=== PATIENT | female | born 1985 | race Caucasian/White ===

== ENCOUNTER 2022-08-25 10:15 | Outpatient (CLI) | payer BC, SELFPAY ==
[2022-08-25 19:52] LABS: Basophils Percent Auto 0.5 % (0.2-1.2); Eosinophils Absolute Auto 0.1 K/mm3 (0-0.3); Eosinophils Percent Auto 1.1 % (0-4.4); Hematocrit 43.8 % (37.0-47.0); Hemoglobin 14.6 g/dL (12.0-15.0); Immature Granulocyte Absolute 0.02 K/mm3 (0.00-0.031); Immature Granulocyte Percent A 0.3 % (0-0.5); Lymphocytes Absolute Auto 1.71 K/mm3 (0.9-3.2); Lymphocytes Percent Auto 26.4 % (18.3-44.2); Mean Corpuscular HGB Conc 33.3 g/dl (32-36); Mean Corpuscular Hemoglobin 30.5 pg (26-34); Mean Corpuscular Volume 91.4 fl (80-100); Mean Platelet Volume 10.8 fl (7.4-10.4); Monocytes Absolute Auto 0.5 K/mm3 (0.1-0.6); Neutrophils Absolute Auto 4.1 K/mm3 (1.3-6.7); Neutrophils Percent Auto 63.7 % (45.5-73.1); Platelet Count Result 314 k/mm3 (150-375); Red Blood Count 4.79 M/mm3 (4.2-5.4); Red Cell Distribution Width 11.9 % (11.5-14.5); White Blood Count 6.5 K/mm3 (4.5-10.0)
[2022-08-25 21:07] LABS: Alanine Aminotransferase 28 U/L (6-35); Albumin Level 5.1 g/dL (3.5-5.1); Alkaline Phosphatase 54 U/L (38-126); Anion Gap 9 mmol/L (8-16); Aspartate Amino Transferase 39 U/L (14-36); Bilirubin,Total 1.5 mg/dL (0.2-1.3); Blood Urea Nitrogen 11 mg/dL (7-17); Calcium 9.1 mg/dL (8.4-10.2); Carbon Dioxide 29 mmol/L (22-30); Chloride 99 mmol/L (98-107); Estimated Glomerular Filt Rate > 60; Glucose 79 mg/dL (65-110); Potassium 4.3 mmol/L (3.4-5.0); Sodium 137 mmol/L (137-145)
== END 2022-08-25 10:16 | disposition home or self-care (01) ==
LOC: ANHGOSHLAB 10:17
PROVIDERS: PCP Family Medicine; Visit Provider Family Medicine
DX: R53.83 Other fatigue (principal); Z13.29 Encounter for screening for other suspected endocrine disorder; Z13.228 Encounter for screening for other metabolic disorders
CPT/HCPCS: 36415; 80053; 84443; 85025

== ENCOUNTER 2022-12-13 19:37 | Emergency (ER) | payer BC, SELFPAY ==
--- NOTE | ~2022-12-13 | XR_ITS ---
EXAM: XR foot RT min 3V DATE: 12/13/2022 19:58 HISTORY: stepped on nail, R.FOOT . COMPARISON: None available. FINDINGS: Normal mineralization. No fracture or dislocation. No lytic or blastic lesion. Joint space s are maintained. No erosion or periosteal change. Soft tissues within normal limits. IMPRESSION: No acute osseous finding in the right foot. No radiopaque foreign body. Reviewed, dictated and finalized at location K. IMPRESSION: No acute osseous finding in the right foot. No radiopaque foreign b radha.
[2022-12-13 19:45] VITALS: BP 115/75; PULSE 84; RESP 16; TEMP 36.9; O2SAT 100
--- NOTE | 2022-12-13 21:28 | ED.GENADULT ---
HPI - General Adult General Chief complaint: Extremity Injury, Lower <ABIGAIL Lopez Last Filed: 12/14/22 03:17> Stated complaint: stepped on a nail <ABIGAIL Lopez Last Filed: 12/14/22 03:17> Time Seen by Provider: 12/13/22 21:10 <Marco Miller PA-C - Last Filed: 12/14/22 03:17> Source: patient <ABIGAIL Lopez Last Filed: 12/14/22 03:17> Mode of arrival: ambulatory <ABIGAIL Lopez Last Filed: 12/14/22 03:17> Limitations: no limitations <ABIGAIL Lopez Last Filed: 12/14/22 03:17> History of Present Illness HPI narrative: This is a 36-year-old female presents the ED with chief complaint of a right foot injury just prior to arrival. Patient states she was working outside on her deck and stepped on a board that had a nail in it. She is reports the nail went through the sole of her right shoe and into the foot. She states the nail was not embedded in the foot. Reports some pain in the area. Denies any further site of pain or injury. Tetanus status unknown. <Marco Miller PA-C - Last Filed: 12/14/22 03:17> Related Data Allergies/adverse reactions: Allergies Allergy/AdvReac Type Severity Reaction Status Date / Time Penicillins Allergy Mild Rash Verified 12/13/22 21:11 <Marco Miller PA-C - Last Filed: 12/14/22 03:17> Review of Systems Review of Systems: CONSTITUTIONAL: Denies fever, chills, or sweats. SKIN: See HPI MUSCULOSKELETAL: See HPI NEUROLOGIC: Denies headache, numbness, dizziness, or weakness. PSYCHIATRIC: Denies anxiety or depression. <ABIGAIL Lopez Last Filed: 12/14/22 03:17> PMFSH Past Medical History Medical History: Medical History Asthma <ABIGAIL Lopez Last Filed: 12/14/22 03:17> Surgical History Surgical History: Surgical History Hx of cholecystectomy (~2009) <ABIGAIL Lopez Last Filed: 12/14/22 03:17> Family History Family History: Family History Father Hypertension Mother Thyroid cancer Grandparent Diabetes mellitus Hypertension Heart problem Grandparent Hypertension Heart problem <Marco Miller PA-C - Last Filed: 12/14/22 03:17> Social History Social History: Social History Smoking status: Never smoker Alcohol intake: never Substance use: never Substance use type: does not use Lack of Transportation: No Lack of Food: Never True Current Housing: I Have Housing Concerned About Future Housing: No Difficulty Paying Gas/Electric Bills: No Difficulty Paying for Meds: No Currently Unemployed: No Education: Decline to Answer Difficulty w/ Childcare or Family Care: No Living arrangements: with family Additional living arrangements comments: Spouse and Children Occupation/Education: occupation 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 EXTREMITIES: Normal range of motion. No edema. SKIN: Small puncture wound noted to the sole of the right foot. Warm, dry, no rash. NEURO: Alert and oriented x3. No focal deficits. PSYCH: Normal mood and affect. <Marco Miller PA-C - Last Filed: 12/14/22 03:17> Course PROPERTY MANAGEMENT ASSISTANT/PA Physician Supervision This is a was performed by both a physician and an APC. I performed all aspects of the MDM as documented w/ the following additions: 36-year-old presented after stepping on a nail went through he
[2022-12-13] MEDS: CIPROFLOXACIN 500 MG TAB PO (21:47)
[2022-12-13] MEDS: TETANUS,DIPHTHERIA,AC PERTUSSIS ADULT (0.5 ML) BOOSTRIX IM (21:47)
== END 2022-12-13 22:06 | disposition home or self-care (01) ==
LOC: ANHED 21:59
PROVIDERS: Emergency Provider Physician Assistant; PCP Family Medicine
DX: S91.331A Puncture wound without foreign body, right foot, initial encounter (principal); Z23 Encounter for immunization; J45.909 Unspecified asthma, uncomplicated; W45.0XXA Nail entering through skin, initial encounter
CPT/HCPCS: 73630; 90471; 90715; 99283; A9270

== ENCOUNTER 2023-05-25 19:13 | Emergency (ER) | payer BC, SELFPAY ==
--- NOTE | ~2023-05-25 | CT_ITS ---
EXAMINATION: CT cervical spine wo con DATE: 05/25/2023 21:59 INDICATION: Neck pain TECHNIQUE: Computed tomography (CT) of the cervical spine was performed without intravenous contrast. The dose-length product was 127 mGy-cm. Automated exposure control and iterative reconstruction technique were employed. COMPARISON: None FINDINGS: Straightening of cervical lordosis. Vertebral body heights are maintained. No fracture, sub luxation or dislocation. No evidence for perched facet. Skull base is unremarkable. Lung apices are u nremarkable. No paraspinal soft tissue abnormality. Craniovertebral junction is normal. IMPRESSION: 1. No acute abnormality of the cervical spine. Reviewed, dictated and finalized at location A.
[2023-05-25 19:46] VITALS: BP 127/73; PULSE 80; RESP 16; TEMP 36.7; O2SAT 100
[2023-05-25] MEDS: ACETAMINOPHEN 500 MG TABLET 1000 MG PO (21:51)
[2023-05-25] MEDS: IBUPROFEN 400 MG TABLET 800 MG PO (21:51)
[2023-05-25] MEDS: CYCLOBENZAPRINE HCL 10 MG TABLET PO (22:40)
--- NOTE | 2023-05-26 13:46 | ED.GENADULT ---
HPI - General Adult General Chief complaint: Neck Pain/Injury Stated complaint: neck pain Time Seen by Provider: 05/25/23 21:09 Source: patient Mode of arrival: ambulatory Limitations: no limitations History of Present Illness HPI narrative: 37 year old female presents today with complaints of right neck pain that has been going on for over a week. She went to Urgent care today who directed her to the ER due to them only being able to do xr. Paitent with left neck pain that started about 1 week ago when she awoke. She assumed that she slept on it wrong has tried some tylenol and ibuprofen 1 pill maybe twice a day and a topical once without relief. does get some tingling to the 3,4,5 digits of the hand but is intermittent. Denies urinary incontinence, bowel incontinence, leg or arm weakness, saddle pareasthesia. Related Data Allergies Allergy/AdvReac Type Severity Reaction Status Date / Time Penicillins Allergy Mild Rash Verified 05/25/23 20:33 Review of Systems Review of Systems: All systems reviewed & are unremarkable except as noted in HPI and below PMFSH Past Medical History Medical History Asthma Surgical History Surgical History Hx of cholecystectomy (~2009) Family History Family History Father Hypertension Mother Thyroid cancer Grandparent Diabetes mellitus Hypertension Heart problem Grandparent Hypertension Heart problem Social History Social History Smoking status: Never smoker Alcohol intake: never Substance use: never Substance use type: does not use Lack of Transportation: No Lack of Food: Never True Current Housing: I Have Housing Concerned About Future Housing: No Difficulty Paying Gas/Electric Bills: No Difficulty Paying for Meds: No Currently Unemployed: No Education: Decline to Answer Difficulty w/ Childcare or Family Care: No Living arrangements: with family Additional living arrangements comments: Spouse and Children Occupation/Education: occupation 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 Gender identity (if verbalized by the patient): Female Sexual Orientation (if Verbalized by the Patient): Straight or Heterosexual Spiritual care concerns: No Agree to blood products: Yes Exam Const: General: cooperative, healthy appearing, comfortable, no acute distress and well developed Orientation/consciousness: patient oriented x3 HENMT: Head: normal to inspection Eyes: General: appearance normal, both eyes and all related structures Resp: Effort & Inspection: normal respiratory effort and able to speak in complete sentences Auscultation: clear to auscultation bilaterally Cardio: Rate: regular rate Rhythm: regular rhythm Heart sounds: S1 normal heart sound present and S2 normal heart sound present Back/Spine/Pelvis: Cervical Spine: normal cervical lordosis, cervical ROM normal, No cervical muscular tenderness, No pain with cervical ROM and No Cervical spine tenderness Other: Spasm noted to left trapezius muscle Neuro: General: patient oriented x3 Cranial nerves: Yes CN's II-XII intact bilaterally Speech: normal speech Gait exam (Neuro): Normal gait present Motor exam (neuro): 5/5 motor strength present throughout Course Vital Signs Vital signs: Vital Signs Temperature 98.1 F 05/25/23 19:46 Pulse Rate 80 05/25/23 19:46 Respiratory Rate 16 05/25/23 19:46 Blood Pressure 127/73 05/25/23 19:46 Pulse Oximetry 100 05/25/23 19:46 Temperature 98.1 F 05/25/23 19:46 Pulse Rate 80 05/25/23 19:46 Respiratory Rate 16 05/25/23 19:46 Blood Pressure 127/73 05/25/23 19:46 Pulse Oximetry 100 05/25/23 19:46 Medical Decision Making ELENO Murdock
== END 2023-05-25 22:49 | disposition home or self-care (01) ==
PROVIDERS: Emergency Provider Nurse Practitioner Family; PCP Family Medicine
DX: S16.1XXA Strain of muscle, fascia and tendon at neck level, initial encounter (principal); M62.838 Other muscle spasm; J45.909 Unspecified asthma, uncomplicated; Z90.49 Acquired absence of other specified parts of digestive tract; X58.XXXA Exposure to other specified factors, initial encounter
CPT/HCPCS: 72125; 99284; A9270

== ENCOUNTER 2023-06-27 13:44 | Outpatient (CLI) | payer BC, SELFPAY ==
--- NOTE | ~2023-06-27 | XR_ITS ---
XR shoulder LT min 2V DATE: 06/27/2023 14:11 INDICATION: Posterior left shoulder pain TECHNIQUE: 4 views COMPARISON: None FINDINGS: No fracture, dislocation, periosteal reaction or bone destruction. There is normal alignmen t and preservation of joint spaces at the acromioclavicular and glenohumeral joints. No abnormal soft tissue calcification of left shoulder area. IMPRESSION: Negative Reviewed, dictated and finalized at location L. AINABILITY COACH IMPRESSION: Negative
== END 2023-06-27 13:45 | disposition home or self-care (01) ==
PROVIDERS: PCP Family Medicine; Visit Provider Emergency Medicine
DX: M25.512 Pain in left shoulder (principal)
CPT/HCPCS: 73030

== ENCOUNTER 2023-12-06 09:46 | Outpatient (CLI) | payer BC, SELFPAY ==
[2023-12-06 19:52] LABS: Basophils Percent Auto 0.6 % (0.2-1.2); Eosinophils Percent Auto 0.8 % (0-4.4); Hematocrit 43.5 % (37.0-47.0); Hemoglobin 14.6 g/dL (12.0-15.0); Immature Granulocyte Absolute 0.01 K/mm3 (0.00-0.031); Immature Granulocyte Percent A 0.2 % (0-0.5); Lymphocytes Absolute Auto 1.53 K/mm3 (0.9-3.2); Lymphocytes Percent Auto 29.9 % (18.3-44.2); Mean Corpuscular HGB Conc 33.6 g/dl (32-36); Mean Corpuscular Hemoglobin 31.1 pg (26-34); Mean Corpuscular Volume 92.6 fl (80-100); Mean Platelet Volume 10.8 fl (7.4-10.4); Monocytes Absolute Auto 0.4 K/mm3 (0.1-0.6); Neutrophils Absolute Auto 3.2 K/mm3 (1.3-6.7); Neutrophils Percent Auto 61.5 % (45.5-73.1); Platelet Count Result 316 k/mm3 (150-375); White Blood Count 5.1 K/mm3 (4.5-10.0)
[2023-12-06 20:29] LABS: Erythrocyte Sedimentation Rate 7 mm/hr (0-20)
[2023-12-06 20:32] LABS: Alanine Aminotransferase 25 U/L (6-35); Albumin Level 5.1 g/dL (3.5-5.1); Alkaline Phosphatase 53 U/L (38-126); Anion Gap 9 mmol/L (4-12); Aspartate Amino Transferase 49 U/L (14-36); Bilirubin,Total 1.2 mg/dL (0.2-1.3); Blood Urea Nitrogen 19 mg/dL (7-17); Calcium 10.2 mg/dL (8.4-10.2); Carbon Dioxide 27 mmol/L (22-30); Chloride 104 mmol/L (98-107); Estimated Glomerular Filt Rate > 60; Glucose 99 mg/dL (65-110); Potassium 4.9 mmol/L (3.4-5.0); Sodium 140 mmol/L (137-145)
[2023-12-06 20:39] LABS: Vitamin D 25 Hydroxy 27.2 ng/mL
[2023-12-06 21:35] LABS: Folic Acid 14.8 ng/mL (2.76->20)
== END 2023-12-06 09:47 | disposition home or self-care (01) ==
LOC: ANHGOSHLAB 09:47
PROVIDERS: PCP Family Medicine; Visit Provider Family Medicine
DX: R53.83 Other fatigue (principal); Z13.29 Encounter for screening for other suspected endocrine disorder; R63.4 Abnormal weight loss; Z13.228 Encounter for screening for other metabolic disorders; E55.9 Vitamin D deficiency, unspecified
CPT/HCPCS: 36415; 80053; 82306; 82607; 82746; 84443; 85025; 85652

== ENCOUNTER 2024-01-09 13:36 | Outpatient (CLI) | payer BC, SELFPAY ==
[2024-01-09 17:24] LABS: Alanine Aminotransferase 18 U/L (6-35); Albumin Level 4.9 g/dL (3.5-5.1); Alkaline Phosphatase 54 U/L (38-126); Aspartate Amino Transferase 29 U/L (14-36); Bilirubin,Total 1.5 mg/dL (0.2-1.3); CRP < 0.5 mg/dL (<1.0)
[2024-01-12 17:13] LABS: Immunoglobulin A 161 mg/dL (47-310); TTG IGA AB <1.0 U/mL
== END 2024-01-09 13:37 | disposition home or self-care (01) ==
PROVIDERS: PCP Family Medicine; Visit Provider Nurse Practitioner Family
DX: R74.01 Elevation of levels of liver transaminase levels (principal); R63.6 Underweight; K52.9 Noninfective gastroenteritis and colitis, unspecified
CPT/HCPCS: 36415; 80076; 82784; 86140; 86364

== ENCOUNTER 2024-01-24 10:31 | Outpatient (CLI) | payer BC, SELFPAY ==
[2024-02-01 17:03] LABS: Pancreatic Elastase, Stool >500 mcg/g
[2024-02-01 18:24] LABS: Calprotectin, Stool 5 mcg/g
== END 2024-01-24 10:32 | disposition home or self-care (01) ==
PROVIDERS: PCP Family Medicine; Visit Provider Nurse Practitioner Family
DX: K52.9 Noninfective gastroenteritis and colitis, unspecified (principal); R63.6 Underweight
CPT/HCPCS: 82653; 83993

== ENCOUNTER 2024-04-12 00:33 | Day surgery (SDC) | payer BC, SELFPAY ==
[2024-03-25 15:00] VITALS: BMI 18.3
--- NOTE | 2024-04-12 12:23 | WPDANESEPPF ---
Anes - Initial Pre Proc Eval Procedure: Operation Date: 04/12/24 13:30 Proposed Procedures p Colonoscopy - Jerad Ayala MD Date/Time: 04/12/24 12:23 Surgeon: Jerad Ayala MD Pre Op Diagnosis: Gastroenteritis/colitis unspecified Patient Data Age: 38 Gender: F Height: 1.57 m Weight: 45.4 kg Allergies Allergy/AdvReac Type Severity Reaction Status Date / Time Penicillins Allergy Mild Rash Verified 03/25/24 14:59 Home Medications Medication Instructions Recorded Confirmed Type albuterol sulfate 90 mcg/actuation 1 inh inhalation Q4-6H PRN 08/25/22 03/25/24 Rx breath activated powder inhaler shortness of breath #1 ea cholestyramine (with sugar) 4 gram 4 g PO BIDWMEAL #348.6 grams 11/27/23 03/25/24 Rx oral powder Patient hx anesthesia problems: none Family hx anesthesia problems: none Results Review: All pre-operative results and documents have been reviewed as part of the pre-operative evaluation. [facility] Past Medical History Medical History Asthma Surgical History Surgical History Hx of cholecystectomy (~2009) Family History Family History Father Hypertension Mother Thyroid cancer Grandparent Diabetes mellitus Hypertension Heart problem Grandparent Hypertension Heart problem Social History Social History Smoking status: Never smoker Alcohol intake: never Substance use: never Substance use type: does not use Lack of Transportation: No Lack of Food: Never True Current Housing: I Have Housing Concerned About Future Housing: No Difficulty Paying Gas/Electric Bills: No Difficulty Paying for Meds: No Currently Unemployed: No Education: Master's Degree or Higher Difficulty w/ Childcare or Family Care: No Living arrangements: with family Additional living arrangements comments: Spouse and Children Occupation/Education: occupation 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 Gender identity (if verbalized by the patient): Female Sexual Orientation (if Verbalized by the Patient): Straight or Heterosexual Spiritual care concerns: No Agree to blood products: Yes Anes - Eval Final PreProcedure Day of Procedure 04/12/24 12:23 Patient weight: normal Heart: regular rate and rhythm Lungs: clear to auscultation Airway: Mallampati scale class II Neurological: alert and oriented Last oral intake: >/= 8 hours ASA classification: II Emergent: no Anesthetic plan: proceed Anesthesia type and monitoring: general GIVS and standard monitoring Results Review: All pre-operative results and documents have been reviewed as part of the pre-operative evaluation. Informed Consent: The patient's anesthetic plan and its attendant risks and benefits were discussed with the patient/family/POA. Questions were solicited and answers provided to the satisfaction of the patient/family/POA.
[2024-04-12] MEDS: LACTATED RINGERS 1,000 ML 150 ML IV CONT (12:30)
[2024-04-12 12:33] VITALS: BP 119/77; PULSE 82; RESP 16; TEMP 36.8; O2SAT 100
[2024-04-12 12:37] LABS: BEDSIDEPREGUCG Negative
--- NOTE | 2024-04-12 12:56 | PM.HPGS ---
History of Present Illness History of Present Illness Consent: Risks, benefits, and alternatives have been discussed and questions answered. Patient agrees to proceed with procedure. Chief complaint: Gastroenteritis/colitis unspecified Narrative: Olivia Peterson is a 38 year old female here for first colonoscopy, h/o chronic diarrhea- no celiac, no EPI, normal calprotectin. s/p candy, she has not tried questran yet Review of Systems Review of Systems: All systems reviewed & are unremarkable except as noted in HPI and below PMFSH Past Medical History Medical History Asthma Surgical History Surgical History Hx of cholecystectomy (~2009) Family History Family History Father Hypertension Mother Thyroid cancer Grandparent Diabetes mellitus Hypertension Heart problem Grandparent Hypertension Heart problem Social History Social History Smoking status: Never smoker Alcohol intake: never Substance use: never Substance use type: does not use Lack of Transportation: No Lack of Food: Never True Current Housing: I Have Housing Concerned About Future Housing: No Difficulty Paying Gas/Electric Bills: No Difficulty Paying for Meds: No Currently Unemployed: No Education: Master's Degree or Higher Difficulty w/ Childcare or Family Care: No Living arrangements: with family Additional living arrangements comments: Spouse and Children Occupation/Education: occupation 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 Gender identity (if verbalized by the patient): Female Sexual Orientation (if Verbalized by the Patient): Straight or Heterosexual Spiritual care concerns: No Agree to blood products: Yes Meds Home Medications and Allergies Home Medications Medication Instructions Recorded Confirmed Type albuterol sulfate 90 mcg/actuation 1 inh inhalation Q4-6H PRN 08/25/22 04/12/24 Rx breath activated powder inhaler shortness of breath #1 ea cholestyramine (with sugar) 4 gram 4 g PO BIDWMEAL #348.6 grams 11/27/23 04/12/24 Rx oral powder Allergies Allergy/AdvReac Type Severity Reaction Status Date / Time Penicillins Allergy Mild Rash Verified 04/12/24 12:31 Vital Signs Vital Signs - 24 hr 08/30/24 12:33 Temperature 98.3 F Pulse Rate 82 Respiratory Rate 16 Blood Pressure 119/77 Pulse Oximetry 100 Oxygen Delivery Room Air Exam Const: General: comfortable and no acute distress HENMT: Face/Nose/Sinus: Normal nares present Eyes: General: appearance normal, both eyes and all related structures Neck: Neck: no JVD Resp: Auscultation: clear to auscultation bilaterally Cardio: Rate: regular rate Rhythm: regular rhythm GI: Inspection: non-distended GI Palp: Yes Soft to palpation Skin: General skin exam: normal color Neuro: General: gait normal Speech: normal speech Extrem: General: normal to inspection Psych: Mental Status: mental status grossly normal Assessment and Plan Assessment and plan (1) Chronic diarrhea: Code(s): K52.9 - Noninfective gastroenteritis and colitis, unspecified Status: Acute Assessment and Plan: colonoscopy with random colon bx
[2024-04-12 13:19] VITALS: BP 105/56; PULSE 81; RESP 17; O2SAT 100
[2024-04-12 13:29] VITALS: BP 108/73; PULSE 79; RESP 18; O2SAT 100
[2024-04-12 13:39] VITALS: BP 106/76; PULSE 70; RESP 18; O2SAT 100
== END 2024-04-12 13:53 | disposition home or self-care (01) ==
PROVIDERS: Anesthesiology; PCP Family Medicine; Referring Provider Nurse Practitioner Family; Visit Provider Internal Medicine Gastroenterology
PROC: 0DJD8ZZ Inspection of Lower Intestinal Tract, Via Natural or Artificial Opening Endoscopic (ICD-10-PCS; CPT 45378; principal; 2024-04-12 13:30)
DX: R19.7 Diarrhea, unspecified (principal); D12.3 Benign neoplasm of transverse colon; J45.909 Unspecified asthma, uncomplicated; Z79.51 Long term (current) use of inhaled steroids
CPT/HCPCS: 45385; 45380; 88305; J2704; J7120

== ENCOUNTER 2024-12-04 11:30 | Emergency (ER) | payer BC, SELFPAY ==
--- NOTE | ~2024-12-04 | US_ITS ---
US pelvic complete w TV Ordering provider: Joceline Pradhan PA-C History: . pelvic pain . Comparison: None. Technique: Transabdominal and endovaginal ultrasound of the pelvis (Doppler ultrasound interrogation techniques used as needed for this exam.) FINDINGS: CERVIX: Normal. UTERUS: Measures 8.1x 4.6x 5.3 cm in length which is within normal limits and is retroverted. No cecil metrial masses. ENDOMETRIUM: Normal in thickness measuring 9.6 mm. No endometrial masses, cysts or fluid. CUL DE SAC: Minimal free fluid anteriorly and posteriorly. RIGHT OVARY: Normal in size measuring 3.4x 2.1x 1.7 cm. Normal echotexture. Doppler vascular flow pre sent. Multiple follicles are seen. LEFT OVARY: Normal in size measuring 3.6x 2.3x 3.4 Normal echotexture. Doppler vascular flow present. Complex echogenicity areas seen which may be hemorrhagic cyst. ADNEXA: Normal. No mass. IMPRESSION: Bilateral ovarian follicles. Otherwise, normal pelvic ultrasound. Reviewed, dictated and finalized at location A.
[2024-12-04 11:38] VITALS: BP 118/76; PULSE 94; RESP 16; TEMP 36.3; O2SAT 98
[2024-12-04 11:52] LABS: BEDSIDEPREGUCG Negative (Negative)
[2024-12-04 12:00] LABS: Basophils Percent Auto 0.3 % (0.2-1.2); Eosinophils Percent Auto 0.3 % (0-4.4); Hematocrit 39.6 % (37.0-47.0); Hemoglobin 13.3 g/dL (12.0-15.0); Immature Granulocyte Absolute 0.02 K/mm3 (0.00-0.031); Immature Granulocyte Percent A 0.3 % (0-0.5); Lymphocytes Absolute Auto 1.27 K/mm3 (0.9-3.2); Lymphocytes Percent Auto 20.9 % (18.3-44.2); Mean Corpuscular HGB Conc 33.6 g/dl (32-36); Mean Corpuscular Hemoglobin 30.6 pg (26-34); Mean Platelet Volume 10.3 fl (7.4-10.4); Monocytes Absolute Auto 0.4 K/mm3 (0.1-0.6); Monocytes Percent Auto 7.1 % (2.6-8.5); Neutrophils Absolute Auto 4.3 K/mm3 (1.3-6.7); Neutrophils Percent Auto 71.1 % (45.5-73.1); Platelet Count Result 248 k/mm3 (150-375); Red Blood Count 4.35 M/mm3 (4.2-5.4); Red Cell Distribution Width 11.9 % (11.5-14.5); White Blood Count 6.1 K/mm3 (4.5-10.0)
[2024-12-04 12:01] LABS: Add Urine Microscopic? NO; Appearance Urine Clear (Clear); Bilirubin Urine Negative (Negative); Blood Urine Negative (Negative); Color Urine Yellow (Yellow); Glucose Urine UA Negative (Negative); Ketones Urine Negative (Negative); Leukocyte Esterase Ur Negative LEU/UL (Negative); Nitrate Urine Negative (Negative); Protein Urine Negative (Negative); Specific Grav Ur 1.005 (1.001-1.035); Urobilinogen Urine 0.2 mg/dL (<2.0); pH Urine 6.5 (5.0-9.0)
[2024-12-04 12:13] LABS: Alanine Aminotransferase 19 U/L (6-35); Albumin Level 4.9 g/dL (3.5-5.1); Alkaline Phosphatase 42 U/L (38-126); Anion Gap 13 mmol/L (4-12); Aspartate Amino Transferase 25 U/L (14-36); Bilirubin,Total 0.9 mg/dL (0.2-1.3); Blood Urea Nitrogen 11 mg/dL (7-17); Calcium 9.1 mg/dL (8.4-10.2); Carbon Dioxide 23 mmol/L (22-30); Chloride 104 mmol/L (98-107); Estimated CRCL calculation 73 ml/min; Estimated Glomerular Filt Rate > 60; Glucose 103 mg/dL (65-110); Lipase 141 U/L (23-300); Potassium 3.9 mmol/L (3.4-5.0); Sodium 140 mmol/L (137-145)
--- NOTE | 2024-12-04 13:14 | ED.ABDPAIN ---
HPI - Abdominal Pain General Chief Complaint: Abdominal Pain Stated Complaint: abd pain Time Seen by Provider: 12/04/24 12:16 Source: patient Mode of arrival: ambulatory Limitations: no limitations History of Present Illness HPI narrative: This is a 38 year old female that presents to the ER for lower abdominal pain. Reports this started after having sex last night. Reports intense cramping. Reports her symptoms have improved throughout the day, is now a mild dull ache. Denies fever, vomiting, dysuria. Related Data Allergies Allergy/AdvReac Type Severity Reaction Status Date / Time Penicillins Allergy Mild Rash Verified 12/04/24 11:57 Review of Systems Review of Systems: CONSTITUTIONAL: Denies fever GASTROINTESTINAL: Reports abdominal pain. Denies nausea, vomiting, or diarrhea. GENITOURINARY: Denies dysuria or hematuria. All systems reviewed & are unremarkable except as noted in HPI and below PMFSH Past Medical History Medical History Asthma Surgical History Surgical History Hx of cholecystectomy (~2009) Family History Family History Father Hypertension Mother Thyroid cancer Grandparent Diabetes mellitus Hypertension Heart problem Grandparent Hypertension Heart problem Social History Social History Smoking status: Never smoker Alcohol intake: never Substance use: never Substance use type: does not use Lack of Transportation: No Lack of Food: Never True Current Housing: I Have Housing Concerned About Future Housing: No Difficulty Paying Gas/Electric Bills: No Difficulty Paying for Meds: No Currently Unemployed: No Education: Master's Degree or Higher Difficulty w/ Childcare or Family Care: No Living arrangements: with family Additional living arrangements comments: Spouse and Children Occupation/Education: occupation 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 HEAD: Normocephalic, atraumatic. EYES: EOMI. CHEST: Clear to auscultation. No respiratory distress. No wheezes rales or rhonchi HEART: Regular rate and rhythm. No murmur heard. Normal peripheral pulses. ABDOMEN: Soft, nontender, nondistended, normal active bowel sounds. EXTREMITIES: Normal range of motion. No edema. SKIN: Warm, dry, no rash. NEURO: No focal deficits. Alert and oriented x3. PSYCH: Normal mood and affect Course Course Emergency Course: patient updated on her workup and agrees with plan of care Vital Signs Vital signs: Vital Signs Temperature 97.4 F L 12/04/24 11:38 Pulse Rate 94 12/04/24 11:38 Respiratory Rate 16 12/04/24 11:38 Blood Pressure 118/76 12/04/24 11:38 Pulse Oximetry 98 12/04/24 11:38 Temperature 97.4 F L 12/04/24 11:38 Pulse Rate 94 12/04/24 11:38 Respiratory Rate 16 12/04/24 11:38 Blood Pressure 118/76 12/04/24 11:38 Pulse Oximetry 98 12/04/24 11:38 MDM - Abdominal Pain Lab Data 12/04/24 11:48 12/04/24 11:48 Labs: Lab Results 12/04/24 12/04/24 Range/Units 11:48 11:50 WBC 6.1 (4.5-10.0) K/mm3 RBC 4.35 (4.2-5.4) M/mm3 Hgb 13.3 (12.0-15.0) g/dL Hct 39.6 (37.0-47.0) % MCV 91.0 (80-100) fl MCH 30.6 (26-34) pg MCHC 33.6 (32-36) g/dl RDW 11.9 (11.5-14.5) % Plt Count 248 (150-375) k/mm3 MPV 10.3 (7.4-10.4) fl Immature Gran % (Auto) 0.3 (0-0.5) % Neut % (Auto) 71.1 (45.5-73.1) % Lymph % (Auto) 20.9 (18.3-44.2) % Bell % (Auto) 7.1 (2.6-8.5) % Eos % (Auto) 0.3 (0-4.4) % Baso % (Auto) 0.3 (0.2-1.2) % Lymph # (Auto) 1.27 (0.9-3.2) K/mm3 Bell # (Auto) 0.4 (0.1-0.6) K/mm3 Eos # (Auto) 0.0 (0-0.3) K/mm3 Baso # (Auto) 0.0 (0.0-0.1) K/mm3 Abs Immat Gran (auto) 0.02 (0.00-0.031) K/mm3 Absolute Neuts (auto) 4.3 (1.3-6.7) K/mm3 Absolute Nucleated RBC 0.000 (0.0-0.012) K/mm3 Nucleated RBC % 0.0 (0.0-0.2) % Sodium 140 (137-145) mmol/L Potassium 3.9 (3.4-5.0) mmol/L Chloride 104 (98-107) mmol/L Carbon Dioxide 23 (22-30) mmol/L Anion Gap 13 H (4-12) mmol/L BUN 11 D (7-17) mg/dL Creatinine 0.65 L (0.7-1.0) mg/dL Estim Creat Clear Calc 73 ml/min Estimated GFR > 60 (59 - ) Glucose 103 (65-110) mg/dL Calcium 9.1 (8.4-10.2) mg/dL Total Bilirubin 0.9 (0.2-1.3) mg/dL AST 25 (14-36) U/L ALT 19 (6-35) U/L Alkaline Phosphatase 42 (38-126) U/L Total Protein 8.0 (6.3-8.2) g/dL Albumin 4.9 (3.5-5.1) g/dL Lipase 141 (23-300) U/L Urine Color Yellow (Yellow) Urine Appearance Clear (Clear) Urine pH 6.5 (5.0-9.0) Ur Specific [place] 1.005 (1.001-1.035) Urine Protein Negative (Negative) mg/dL Urine Glucose (UA) Negative (Negative) mg/dL Urine Ketones Negative (Negative) mg/dL Ur Blood (Man) Negative (Negative) Urine Nitrate Negative (Negative) Urine Bilirubin Negative (Negative) Urine Urobilinogen 0.2 (<2.0) mg/dL Leukocyte Esterase Rfl Negative (Negative) TIFFANY/UL POC Urine HCG, Qual Negative (Negative) Imaging Data Radiologist's impression: ITS Impressions Pelvic/Transvag US 12/04/24 13:33 IMPRESSION: Bilateral ovarian follicles. Otherwise, normal pelvic ultrasound. Critical Care Time Critical Care Time Critical Care Time: No Discharge Plan Discharge Clinical Impression: Ovarian cyst Qualifiers: Laterality: left Qualified Code(s): N83.202 - Unspecified ovarian cyst, left side Patient Disposition: Home Condition: Stable Instructions: Ovarian Cyst (ED), Ruptured Ovarian Cyst (ED) Additional Instructions: Return to the ER if you experience fever, abdominal pain with nausea and vomiting, you are unable to keep down liquids or solids, or any other symptoms that are concerning to you Rest. Remain well hydrated. Tylenol or Ibuprofen as needed for pain Follow up with gynecology Patient Language: Upper Sorbian Prescriptions: No Action cholestyramine (with sugar) 4 gram powder 4 g PO BIDWMEAL Qty: 348.6 0RF Rx Instructions: administer w/meal; avoid other meds within 1hr before or 4-6hr after dose albuterol sulfate 90 mcg/actuation aerosol powdr breath activated 1 inh inhalation Q4-6H PRN (Reason: shortness of breath) Qty: 1 0RF Follow-up/Referrals: Darshan Kim MD [Physician] - Allison Toth NP [Primary Care Provider] -
--- OUTSIDE RECORDS SUMMARY | 2024-12-04 13:29 | XMS_ITS | Clinical Summary ---
Author Organization [facility] Address [address] [place] [address] Care Team Providers Care Linen Grader Name Role Phone Unavailable Primary Care Provider Unavailabl e Source Comments [facility],non-owned Affiliates and Associated Physician Practices is amultiple site organization consisting of ambulatory clinics and hospital sitesin [place], [place], [place] and [place]. This disclosure is being madepursuant to the Care Everywhere program and may not contain all information available regarding this patient. Last updated [email or web address] Allergies Active Allergy Reactions Criticality Noted Date Comments Penicillins Rash Medium 02/04/2020 Medications * Be aware that medications may not be up to date on this document. Alwaysverify current medications with the patient. No known medications Active Problems No known active problems Social History Tobacco Use Types Packs/Day Years Used Date Smoking Tobacco: Never Assessed Comments Unknown Sex and Gender Information Value Date Recorded Sex Assigned at Not on file Legal Sex Female 9:46 AM CDT Gender Identity Not on file Sexual Orientation Not on file Plan of Treatment Health Maintenance Due Date Last Done Comments PAP SMEAR 1985 HIV SCREENING 2000 HEPATITIS C SCREENING 12/19/2003 DTAP/TDAP/TD VACCINES (1 - Tdap) 2004 HEPATITIS B VACCINE (1 of 3 - 19+ 3-dose series) 2004 COVID-19 VACCINE ( - 2023-2 5 season) 2024 09/15/2020, 08/25/2020 DEPRESSION SCREENING 08/14/2024 INFLUENZA VACCINE (Season Ended) 2025 ZOSTER VACCINE (1 of 2) 12/24/2035 HIB VACCINE Aged Out No longer eligi ble based on patient's age to complete this topic HPV VACCINE Aged Out No longer eligi ble based on patient's age to complete this topic MENINGOCOCCAL (Group B) VACCINE SHARED DECISION-MAKING Aged Out No longer eligible based on patient's age to complete this topic MENINGOCOCCAL GROUPS A/C/Y/W VACCINE Aged Out No longer eligible b ased on patient's age to complete this topic PNEUMOCOCCAL VACCINE Aged Out No long er eligible based on patient's age to complete this topic Insurance [facility] SELF PAY NO INSURANCE Member Subscriber Plan / Payer (Ef fective for All Dates) Name:Janessa Peterson Member ID:Not on file Relation to Subscriber:Not on file Name:JANESSA PETERSON Subscriber ID:Not on file (Home) Address: [facility] [place] [address] Payer ID:Not on file Group ID:Not on file Type:Self Pay Address: [facility]
--- OUTSIDE RECORDS SUMMARY | 2024-12-04 13:29 | XMS_ITS | Encounter Summary ---
Author Organization [facility] Healthcare Address [address] [place] [address] Care Team Providers Care Metal Cut Off Saw Tender Name Role Phone Edwin Lee MD Primary Care Provider +1 [phone] Reason for Visit * Reason Comments Pelvic Pain Last PM after interc ourse she had sever pelvic pain that radiated to her anus. It has improved since it occurred last PM. Denies urinary symptoms or vaginal symptoms. Also reports in the last month she had a couple times some urinary leakage and pelvic pressure Encounter Details Date Type Department Care Team (Late st Contact Info) Description 12/04/2024 10:45 AM CDT Office Visit [facility] Medical Group Convenient Care at [address] [address] Matthew Suero NP [address] [place] [address] [address] [place] [address] Pelvic pain (Primary Dx); Urinary incontinence, unspecified type Social History Tobacco Use Types Packs/Day Years Used Date Smoking Tobacco: Never Smokeless Tobacco: Never Alcohol Use Standard Drinks/Week Comments No 0 (1 standard drink = 0.6 oz pur e alcohol) Humiliation, Afraid, Rape, and Kick questionnair e Answer Date Recorded Within the last year, have y ou been afraid of your partner or ex-partner? No 10/02/2020 Within the last year, have y ou been humiliated or emotionally abused in other ways by your partner or ex-partner? No Within the last year, have y ou been kicked, hit, slapped, or otherwise physically hurt by your partner or ex-partner? No 10/02/2020 Within the last year, have y ou been raped or forced to have any kind of sexual activity by your partner or ex-partner? No 10/02/2020 Comments No Sex and Gender Information Value Date Recorded Sex Assigned at Not on file Legal Sex Female 7:28 PM FAILURE ANALYSIS TECHNICIAN Gender Identity Not on file Sexual Orientation Not on file Occupation Industry Job Start Date Job End Date speak language Not on file Not on file Not on file documented as of this encounter Last Filed Vital Signs Vital Sign Reading Time Taken Comments Blood Pressure 102/60 12/04/2024 10:47 AM CDT Pulse 89 12/04/2024 10:47 AM CDT Temperature 37 C (98.6 F) 12/04/2024 10:47 AM CDT Respiratory Rate 16 12/04/2024 10:47 AM CDT Oxygen Saturation 99% 12/04/2024 10:47 AM CDT Inhaled Oxygen Concentration - - Weight 46.3 kg (102 lb) 12/04/2024 10:47 AM CDT Height - - Body Mass Index 18.66 03/14/2024 9:42 AM CDT documented in this encounter Miscellaneous Notes * Addendum Note - Bernardo Bedolla LPN - 12/04/2024 10:45 AM CDTAddended by: BERNARDO BEDOLLA on: 12/04/2024 12:17 PM Modules accepted: Orders documented in this encounter Plan of Treatment Not on file documented as of this encounter Procedures Procedure Name Priority Date/Time Associated Diagnosis Comments POCT HCG, URINE Routine 12/04/2024 11:01 AM CDT Pelvic pain POCT URINALYSIS DIPSTICK Routine 12/04/2024 11:00 AM CDT Pelvic pain documented in this encounter Results * POCT hCG, urine (12/04/2024 11:01 AM CDT) HCG, ur, POC Negative Negative Lot Number 0 QC Backgroud Clear Acceptable QC Control Line Acceptable Urine 12/04/2024 11:0 1 AM CDT Matthew Suero NP POINT OF CARE TEST ORDERABLES F inal Result * POCT urinalysis dipstick (12/04/2024 11:00 AM CDT) Color, Urine, POC Light Yellow Clarity, ur, POC Clear Clear Glucose, ur, POC Negative Negative MG/DL Bilirubin, ur, POC Negative Negative, Small, Moderate, Large Ketones, ur, POC Negative Negative Specific [place], POC 1.005 1.003 - 1.030 Blood, ur, POC Negative Negative pH, ur, POC 5.5 5.0 - 8.0 Protein, ur, POC Negative Negative Urobilinogen, urine, POC 0.2 0.2 - 1.0 mg/dL Nitrite, ur, POC Negative Negative Leukocytes, ur, POC Negative Negative Lot Number [id number] Urine 12/04/2024 11:0 0 AM CDT Matthew Suero NP POINT OF CARE TEST ORDERABLES F inal Result documented in this encounter Visit Diagnoses Diagnosis Pelvic pain- Primary Urinary incontinence, unspecified type documented in this encounter Care Teams Metal Cut Off Saw Tender Relationship Specialty Start Date End Date Edwin Lee MD [address] [place] [address] PCP - General 09/27/17 documented as of this encounter
--- OUTSIDE RECORDS SUMMARY | 2024-12-04 13:29 | XMS_ITS | Clinical Summary ---
Author Organization [facility] Address [address] [place] [address] Care Team Providers Care Soil Technician Name Role Phone Edwin Lee MD Primary Care Provider [phone] [phone] Allergies Active Allergy Reactions Criticality Noted Date Comments Penicillins Unknown Medications multivitamin capsule Take 1 capsule by mouth daily Active albuterol 0.63 mg/3 mL nebulizer solution Active Active Problems Problem Noted Date Diagnosed Date Palpitations 03/14/2024 Routine gynecological examination 10/05/2020 Assessment & Plan (10/11/2021 4:17 PM VERIFIER): Patient is doing well. She is up-to-date on her Pap smear which was done in September of 2020 and was normal. Couple uses vasectomy for prevention. Encounters Date Type Department Care Team Description 12/04/2024 10:45 AM CDT Office Visit [facility] Medical Group [facility] Care at [address] [address] Matthew Suero NP Pelvic pain (Primary Dx); Urinary incontinence, unspecified type from Last 3 Months Surgical History Surgery Date Site/Laterality Comments CHOLECYSTECTOMY Medical History Medical History Date Comments Asthma Family History Medical History Relation Name Comments No Known Problems Mother Hypertension Paternal Grandfather Diabetes Paternal Grandmother Heart attack Paternal Grandmother Hypertension Paternal Grandmother Stroke Paternal Grandmother Relation Name Status Comments Father Alive Mother Alive Paternal Grandfather Paternal Grandmother Social History Tobacco Use Types Packs/Day Years [...] on file Legal Sex Female 7:28 PM VERIFIER Gender Identity Not on file Sexual Orientation Not on file Occupation Industry Job Start Date Job End Date speak language Not on file Not on file Not on file Obstetrics History Para Term AB IAB SAB Ectopic Multiple Livin g Live Births 2 2 2 0 0 2 Date Outcome GA Total Labor Labor/2nd/3rd Weight Sex Type Anes PTL Mai A1 A5 Name Clin Term Term Comments NVD2 Last Filed Vital Signs Vital Sign Reading Time Taken Comments Blood Pressure 102/60 12/04/2024 10:47 AM CDT Pulse 89 12/04/2024 10:47 AM CDT Temperature 37 C (98.6 F) 12/04/2024 10:47 AM CDT Respiratory Rate 16 12/04/2024 10:47 AM CDT Oxygen Saturation 99% 12/04/2024 10:47 AM CDT Inhaled Oxygen Concentration - - Weight 46.3 kg (102 lb) 12/04/2024 10:47 AM CDT Height 157.5 cm (5' 2 ) 03/14/2024 9:42 AM CDT Body Mass Index 18.66 03/14/2024 9:42 AM CDT Plan of Treatment Health Maintenance Due Date Last Done Comments Depression Screening 1985 Varicella Vaccines (1 of 2 - 13+ 2-dose series) 1998 Hepatitis B Screening 12/24/2003 Cervical Cancer Screening 10/05/2021 10/05/2020 Regular Well Visit/Exam 18-64 10/11/2022, 10/05/2020 DTaP/Tdap/Td Vaccine (2 - Td or Tdap) 02/14/2025 02/14/2015 Influenza Vaccine (Season Ended) 2025 Hepatitis C Screening Completed 08/27/2012 HPV Vaccines Aged Out No longer eligi ble based on patient's age to complete this topic Pneumococcal vaccine <65 Aged Out No longer eligible based on patient's age to complete this topic Procedures Procedure Name Priority Date/Time Associated Diagnosis Comments POCT HCG, URINE Routine 12/04/2024 11:01 AM CDT Pelvic pain POCT URINALYSIS DIPSTICK Routine 12/04/2024 11:00 AM CDT Pelvic pain PAP AND HIGH RISK HPV, REFLEX TO GENOTYPING Routine 10/05/2020 9:53 AM VERIFIER Routine gynecological examination SERUM HEPATITIS C AB Routine 08/27/2012 10:55 AM VERIFIER from Last 3 Months or Most Recently Relevant to Health Maintenance Results * POCT hCG, urine (12/04/2024 11:01 [...] Large Ketones, ur, POC Negative Negative Specific [place], POC 1.005 1.003 - 1.030 Blood, ur, POC Negative Negative pH, ur, POC 5.5 5.0 - 8.0 Protein, ur, POC Negative Negative Urobilinogen, urine, POC 0.2 0.2 - 1.0 mg/dL Nitrite, ur, POC Negative Negative Leukocytes, ur, POC Negative Negative Lot Number [id number] Urine 12/04/2024 11:0 0 AM CDT us Matthew Suero NP POINT OF CARE TEST ORDERABLES F inal Result * Pap and High Risk HPV, reflex to Genotyping (10/05/2020 9:53 AM VERIFIER) Swab (Pap test) 10/05/2020 9 :53 AM VERIFIER 10/06/2020 1:46 PM VERIFIER Narrative PATHOLOGY [facility] - 10/09/2020 10:46 AM VERIFIER [facility] results best viewed via link to PDF [address] [address] Tele: Morelia Bonilla MD - Appraiser Timber CYTOLOGY REPORT Patient Name: JANESSA PETERSON Address: [address] [place] [address] Gender: F : 1985 (Age: 34) Service: Laboratory Location: Lab [facility] #: [id number] Patient Type: [facility] Lab Taken: 10/05/2020 Reported: 10/09/2020 Physician(s): Marleny Terry M.D. FINAL DIAGNOSIS: Specimen Type: - ThinPrep Pap and HPV w/ reflex Genotyping Statement of Specimen Adequacy: Source: Cervical/Endocervical - Satisfactory for interpretation - Endocervical /Transformation Zone component present - Case screened using computer assisted imaging technology General Categorization: - Negative for intraepithelial lesion or malignancy alld/10/09/2020 10:46 FORTINO Benton(ASCP)[place] Report Reviewed and Electronically Signed By FORTINO Benton(ASCP)[place] Clerical Data Follow A; G0145 DIAGNOSIS COMMENT: HPV High Risk Group (16, 18, 31, 33, 35, 39, 45, 51, 52, 56, 58, 59, 66 and 68) - Not Detected Reference Range: Not Detected This test was performed using the ABDIAS 4800 CLINICAL DIAGNOSIS AND HISTORY Last Menstrual Period: 09/24/2020 Menstrual History: Regular Cycles REPORT IMAGES AND/OR SCANNED DOCUMENTS ONLY VIEWABLE IN PDF FORMAT The Pap test is a screening test used to aid in the detection of cervical cancer and its precursors. It should not be the sole means by which malignant and premalignant lesions are diagnosed. Both false negative and false positive results may occur. It also has poor sensitivity for the detection of endometrial lesions and should not be used to evaluate suspected endometrial abnormalities. For these reasons it is most important to obtain Pap tests at regular intervals, as recommended by your physician or nurse practitioner. us Marleny Terry MD LAB CYTOLOGY ORDERABLES Final Re sult PATHOLOGY [facility] Laboratory Receiving [address] [place] [address] * Serum Hepatitis C ab (08/27/2012 10:55 AM VERIFIER) HCV ab Non-Reacti ve Non-Reacti ve HISTORICAL RESULTS Serum 08/27/2012 10:5 5 AM VERIFIER Narrative HISTORICAL RESULTS - 08/28/2012 2:23 AM VERIFIER [phone] us Marleny Terry MD LAB BLOOD ORDERABLES Final Resul t HISTORICAL RESULTS from Last 3 Months or Most Recently Relevant to Health Maintenance [place] [address] [employer] CHOICE BLUE [employer] [facility] * Guarantor: ARSEN PETERSON Account Type Relation to Patient Date of Phone Billing Address Client/Submitter Spouse Care Teams Soil Technician Relationship Specialty Start Date End Date Edwin Lee MD [address] [place] [phone] PCP - General 09/27/17
--- OUTSIDE RECORDS SUMMARY | 2024-12-04 13:29 | XMS_ITS | Referral Summary ---
Author Organization [facility] Address [address] [place] [address] Care Team Providers Care Semiconductor Packages Platemaker Name Role Phone Edwin Lee MD Primary Care Provider [phone] [phone] Encounters Date Type Department Care Team Description 12/04/2024 10:45 AM CDT Office Visit [facility] Medical Group Convenient Care at [address] [address] Matthew Suero NP Pelvic pain (Primary Dx); Urinary incontinence, unspecified type from Last 3 Months Allergies Active Allergy Reactions Criticality Noted Date Comments Penicillins Unknown Medications multivitamin capsule Take 1 capsule by mouth daily Active albuterol 0.63 mg/3 mL nebulizer solution Active Active Problems Problem Noted Date Diagnosed Date Palpitations 03/14/2024 Routine gynecological examination 10/05/2020 Assessment & Plan (10/11/2021 4:17 PM SATELLITE TV INSTALLER): Patient is doing well. She is up-to-date on her Pap smear which was done in September of 2020 and was normal. Couple uses vasectomy for prevention. Social History Tobacco Use Types Packs/Day Years [...] on file Legal Sex Female 7:28 PM SATELLITE TV INSTALLER Gender Identity Not on file Sexual Orientation Not on file Occupation Industry Job Start Date Job End Date speak language Not on file Not on file Not on file Last Filed Vital Signs Vital Sign Reading [...] 03/14/2024 9:42 AM CDT Plan of Treatment Not on file Procedures Procedure Name Priority Date/Time Associated Diagnosis Comments POCT HCG, URINE Routine 12/04/2024 11:01 AM CDT Pelvic pain POCT URINALYSIS DIPSTICK Routine 12/04/2024 11:00 AM CDT Pelvic pain PAP AND HIGH RISK HPV, REFLEX TO GENOTYPING Routine 10/05/2020 9:53 AM SATELLITE TV INSTALLER Routine gynecological examination SERUM HEPATITIS C AB Routine 08/27/2012 10:55 AM SATELLITE TV INSTALLER from Last 3 Months or Most Recently Relevant to Health Maintenance Results * POCT hCG, urine (12/04/2024 11:01 AM CDT) HCG, ur, POC Negative Negative Lot Number 0 QC Backgroud Clear Acceptable QC Control Line Acceptable Urine 12/04/2024 11:0 1 AM CDT Matthew Suero CHILD DEVELOPMENT INSTRUCTOR POINT OF CARE TEST ORDERABLES F inal Result * POCT urinalysis dipstick (12/04/2024 11:00 AM CDT) Color, Urine, POC Light Yellow Clarity, ur, POC Clear Clear Glucose, ur, POC Negative Negative MG/DL Bilirubin, ur, POC Negative Negative, Small, Moderate, Large Ketones, ur, POC Negative Negative Specific [place], POC 1.005 1.003 - 1.030 Blood, ur, POC Negative Negative pH, ur, POC 5.5 5.0 - 8.0 Protein, ur, POC Negative Negative Urobilinogen, urine, POC 0.2 0.2 - 1.0 mg/dL Nitrite, ur, POC Negative Negative Leukocytes, ur, POC Negative Negative Lot Number [id number] Urine 12/04/2024 11:0 0 AM CDT Matthew Suero CHILD DEVELOPMENT INSTRUCTOR POINT OF CARE TEST ORDERABLES F inal Result * Pap and High Risk HPV, reflex to Genotyping (10/05/2020 9:53 AM SATELLITE TV INSTALLER) Swab (Pap test) 10/05/2020 9 :53 AM SATELLITE TV INSTALLER 10/06/2020 1:46 PM SATELLITE TV INSTALLER Narrative PATHOLOGY [facility] - 10/09/2020 10:46 AM SATELLITE TV INSTALLER [facility] results best viewed via link to PDF [address] [address] Tele: Morelia Bonilla MD - Upstream Biomanufacturing Technician CYTOLOGY REPORT Patient Name: JANESSA PETERSON Address: [address] [place] [address] Gender: F : 1985 (Age: 34) Service: Laboratory Location: Lab [facility] #: [id number] Patient Type: [facility] Lab Taken: 10/05/2020 Reported: 10/09/2020 Physician(s): Marleny [...] LAB CYTOLOGY ORDERABLES Final Re sult PATHOLOGY [facility] Laboratory Receiving [address] [place] [address] * Serum Hepatitis C ab (08/27/2012 10:55 AM SATELLITE TV INSTALLER) HCV ab Non-Reacti ve Non-Reacti ve HISTORICAL RESULTS Serum 08/27/2012 10:5 5 AM SATELLITE TV INSTALLER Narrative HISTORICAL RESULTS - 08/28/2012 2:23 AM SATELLITE TV INSTALLER [phone] us Marleny Terry MD LAB BLOOD ORDERABLES Final Resul t HISTORICAL RESULTS from Last 3 Months or Most Recently Relevant to Health Maintenance [facility] [employer] * Guarantor: TARIQ PETERSON Account Type Relation to Patient Date of Phone Billing Address Client/Submitter Spouse Care Teams Semiconductor Packages Platemaker Relationship Specialty Start Date End Date Edwin Lee MD [address] [place] [id number] PCP - General 09/27/17
--- OUTSIDE RECORDS SUMMARY | 2024-12-04 14:01 | XMS_ITS | Clinical Summary ---
Author Organization [facility] Address [address] [place] [address] Care Team Providers Care Roofer Name Role Phone Edwin Lee MD Primary Care Provider +1 [phone] Allergies Active Allergy Reactions Criticality Noted Date Comments Penicillins Unknown Medications multivitamin capsule Take 1 capsule by mouth daily Active albuterol 0.63 mg/3 mL nebulizer solution Active Active Problems Problem Noted Date Diagnosed Date Palpitations 03/14/2024 Routine gynecological examination 10/05/2020 Assessment & Plan (10/11/2021 4:17 PM MACHINE VENEER REPAIRER): Patient is doing well. She is up-to-date on her Pap smear which was done in September of 2020 and was normal. Couple uses vasectomy for prevention. Encounters Date Type Department Care Team Description 12/04/2024 10:45 AM CDT Office Visit [facility] Medical Group [facility] Care at [address] [address] Matthew Suero NP Pelvic pain [...] on file Legal Sex Female 7:28 PM MACHINE VENEER REPAIRER Gender Identity Not on file Sexual Orientation [...] REFLEX TO GENOTYPING Routine 10/05/2020 9:53 AM MACHINE VENEER REPAIRER Routine gynecological examination SERUM HEPATITIS C AB Routine 08/27/2012 10:55 AM MACHINE VENEER REPAIRER from Last 3 Months or Most Recently [...] Large Ketones, ur, POC Negative Negative Specific [place], POC 1.005 1.003 - 1.030 Blood, ur, POC Negative Negative pH, ur, POC 5.5 5.0 - 8.0 Protein, ur, POC Negative Negative Urobilinogen, urine, POC 0.2 0.2 - 1.0 mg/dL Nitrite, ur, POC Negative Negative Leukocytes, ur, POC Negative Negative Lot Number [id number] Urine 12/04/2024 11:0 0 AM CDT us Matthew Suero NP POINT OF CARE TEST ORDERABLES F inal Result * Pap and High Risk HPV, reflex to Genotyping (10/05/2020 9:53 AM MACHINE VENEER REPAIRER) Swab (Pap test) 10/05/2020 9 :53 AM MACHINE VENEER REPAIRER 10/06/2020 1:46 PM MACHINE VENEER REPAIRER Narrative PATHOLOGY [facility] - 10/09/2020 10:46 AM MACHINE VENEER REPAIRER [facility] results best viewed via link to PDF [address] [address] Tele: Morelia Bonilla MD - Gang Mower Operator CYTOLOGY REPORT Patient Name: JANESSA PETERSON Address: [address] [place] [address] Gender: F : 1985 (Age: 34) Service: Laboratory Location: Lab [facility] #: [id number] Patient Type: [facility] Lab Taken: 10/05/2020 Reported: 10/09/2020 Physician(s): [...] LAB CYTOLOGY ORDERABLES Final Re sult PATHOLOGY [facility] Laboratory Receiving [address] [place] [address] * Serum Hepatitis C ab (08/27/2012 10:55 AM MACHINE VENEER REPAIRER) HCV ab Non-Reacti ve Non-Reacti ve HISTORICAL RESULTS Serum 08/27/2012 10:5 5 AM MACHINE VENEER REPAIRER Narrative HISTORICAL RESULTS - 08/28/2012 2:23 AM MACHINE VENEER REPAIRER [phone] us Marleny Terry MD LAB BLOOD ORDERABLES Final Resul t HISTORICAL RESULTS from Last 3 Months or Most Recently Relevant to Health Maintenance [place] [id number] [employer] [facility] * Guarantor: ARSEN PETERSON Account Type Relation to Patient Date of Phone Billing Address Client/Submitter Spouse Care Teams Roofer Relationship Specialty Start Date End Date Edwin Lee MD [address] [place] [phone] PCP - General 09/27/17
--- OUTSIDE RECORDS SUMMARY | 2024-12-04 14:01 | XMS_ITS | Referral Summary ---
Author Organization [facility] Address [address] [place] [address] Care Team Providers Care Fire Controlman Name Role Phone Edwin Lee MD Primary Care Provider [phone] [phone] Encounters Date Type Department Care Team Description 12/04/2024 10:45 AM CDT Office Visit [facility] Medical Group Convenient Care at [address] [address] Matthew Suero NP Pelvic pain (Primary Dx); Urinary incontinence, unspecified type from Last 3 Months Allergies Active Allergy Reactions Criticality Noted Date Comments Penicillins Unknown Medications multivitamin capsule Take 1 capsule by mouth daily Active albuterol 0.63 mg/3 mL nebulizer solution Active Active Problems Problem Noted Date Diagnosed Date Palpitations 03/14/2024 Routine gynecological examination 10/05/2020 Assessment & Plan (10/11/2021 4:17 PM ICE BAG ASSEMBLER): Patient is doing well. She is up-to-date [...] on file Legal Sex Female 7:28 PM ICE BAG ASSEMBLER Gender Identity Not on file Sexual Orientation [...] REFLEX TO GENOTYPING Routine 10/05/2020 9:53 AM ICE BAG ASSEMBLER Routine gynecological examination SERUM HEPATITIS C AB Routine 08/27/2012 10:55 AM ICE BAG ASSEMBLER from Last 3 Months or Most Recently Relevant to Health Maintenance Results * POCT hCG, urine (12/04/2024 11:01 AM CDT) HCG, ur, POC Negative Negative Lot Number 0 QC Backgroud Clear Acceptable QC Control Line Acceptable Urine 12/04/2024 11:0 1 AM CDT Matthew Suero SUBSTANCE ABUSE SERVICES DIRECTOR POINT OF CARE TEST ORDERABLES F inal Result * POCT urinalysis dipstick (12/04/2024 11:00 AM CDT) Color, Urine, POC Light Yellow Clarity, ur, POC Clear Clear Glucose, ur, POC Negative Negative MG/DL Bilirubin, ur, POC Negative Negative, Small, Moderate, Large Ketones, ur, POC Negative Negative Specific [place], POC 1.005 1.003 - 1.030 Blood, ur, POC Negative Negative pH, ur, POC 5.5 5.0 - 8.0 Protein, ur, POC Negative Negative Urobilinogen, urine, POC 0.2 0.2 - 1.0 mg/dL Nitrite, ur, POC Negative Negative Leukocytes, ur, POC Negative Negative Lot Number [id number] Urine 12/04/2024 11:0 0 AM CDT Matthew Suero SUBSTANCE ABUSE SERVICES DIRECTOR POINT OF CARE TEST ORDERABLES F inal Result * Pap and High Risk HPV, reflex to Genotyping (10/05/2020 9:53 AM ICE BAG ASSEMBLER) Swab (Pap test) 10/05/2020 9 :53 AM ICE BAG ASSEMBLER 10/06/2020 1:46 PM ICE BAG ASSEMBLER Narrative PATHOLOGY [facility] - 10/09/2020 10:46 AM ICE BAG ASSEMBLER [facility] results best viewed via link to PDF [address] [address] Tele: Morelia Bonilla MD - Garment Sewer Hand CYTOLOGY REPORT Patient Name: JANESSA PETERSON Address: [address] [place] [address] Gender: F : 1985 (Age: 34) Service: Laboratory Location: Lab [facility] #: [id number] Patient Type: [facility] Lab Taken: 10/05/2020 Reported: 10/09/2020 Physician(s): Marleny [...] LAB CYTOLOGY ORDERABLES Final Re sult PATHOLOGY [facility] Laboratory Receiving [address] [place] [address] * Serum Hepatitis C ab (08/27/2012 10:55 AM ICE BAG ASSEMBLER) HCV ab Non-Reacti ve Non-Reacti ve HISTORICAL RESULTS Serum 08/27/2012 10:5 5 AM ICE BAG ASSEMBLER Narrative HISTORICAL RESULTS - 08/28/2012 2:23 AM ICE BAG ASSEMBLER [phone] us Marleny Terry MD LAB BLOOD ORDERABLES Final Resul t HISTORICAL RESULTS from Last 3 Months or Most Recently Relevant to Health Maintenance Insurance [facility] [place] * Guarantor: TARIQ PETERSON Account Type Relation to Patient Date of Phone Billing Address Client/Submitter Spouse Care Teams Fire Controlman Relationship Specialty Start Date End Date Edwin Lee MD [address] [place] [id number] PCP - General 09/27/17
--- OUTSIDE RECORDS SUMMARY | 2024-12-04 14:01 | XMS_ITS | Encounter Summary ---
Author Organization [facility] Healthcare Address [address] [place] [address] Care Team Providers Care Pin Chaser Name Role Phone Edwin Lee MD Primary Care Provider [phone] Reason for Visit * Reason Comments Pelvic [...] [facility] [address] [address] Matthew Suero NP [address] [place] [address] [address] [place] [address] Pelvic pain (Primary Dx); Urinary [...] on file Legal Sex Female 7:28 PM [employer] Gender Identity Not on file Sexual Orientation [...] Large Ketones, ur, POC Negative Negative Specific [place], POC 1.005 1.003 - 1.030 Blood, ur, POC Negative Negative pH, ur, POC 5.5 5.0 - 8.0 Protein, ur, POC Negative Negative Urobilinogen, urine, POC 0.2 0.2 - 1.0 mg/dL Nitrite, ur, POC Negative Negative Leukocytes, ur, POC Negative Negative Lot Number [id number] Urine 12/04/2024 11:0 0 AM CDT Matthew Suero NP POINT OF CARE TEST ORDERABLES F inal Result documented in this encounter Visit Diagnoses Diagnosis Pelvic pain- Primary Urinary incontinence, unspecified type documented in this encounter Care Teams Pin Chaser Relationship Specialty Start Date End Date Edwin Lee MD [address] [place] [id number] PCP - General 09/27/17 documented as of this encounter
--- OUTSIDE RECORDS SUMMARY | 2024-12-04 14:01 | XMS_ITS | Clinical Summary ---
Author Organization [facility] Address [address] [place] [address] Care Team Providers Care Insurance Follow Up Representative Name Role Phone Unavailable Primary Care Provider Unavailabl e Source Comments [facility],non-owned Affiliates and Associated Physician Practices is amultiple site organization consisting of ambulatory clinics and hospital sitesin [place], [place], [place] and [place]. This disclosure is being madepursuant to the Care Everywhere program and may not contain all information available regarding this patient. Last updated 18.[facility] [place] Allergies Active Allergy Reactions Criticality Noted Date [...] patient's age to complete this topic Insurance [facility] SELF PAY NO INSURANCE Member Subscriber Plan / Payer (Ef fective for All Dates) Name:Janessa Peterson Member ID:Not on file Relation to Subscriber:Not on file Name:JANESSA PETERSON Subscriber ID:Not on file (Home) Address: [facility] [place] [address] Payer ID:Not on file Group ID:Not on file Type:Self Pay Address: [facility]
== END 2024-12-04 13:55 | disposition home or self-care (01) ==
PROVIDERS: Emergency Medicine; Emergency Provider Physician Assistant; PCP Nurse Practitioner
DX: N83.202 Unspecified ovarian cyst, left side (principal); J45.909 Unspecified asthma, uncomplicated
CPT/HCPCS: 36415; 76830; 76856; 80053; 81003; 81025; 83690; 85025; 99284